=== PATIENT | female | born 1995 | race Hispanic/Latino ===

== ENCOUNTER 2017-10-01 00:02 | Emergency (ER) | payer SELFPAY ==
[2017-10-01 01:39] LABS: APPEARANCE,URINE Clear (CLEAR); BILIRUBIN,URINE Negative (NEGATIVE); COLOR,URINE Yellow (YELLOW); GLUCOSE, URINE (UA) Negative (NEGATIVE); KETONES,URINE Negative (NEGATIVE); LEUKOCYTE ESTERASE ,URINE Negative (NEGATIVE); NITRATE,URINE Negative (NEGATIVE); OCCULT BLOOD,URINE Negative (NEGATIVE); PROTEIN,URINE Negative (NEGATIVE); UROBILINOGEN,URINE 0.2 mg/dL (0.2-1.0)
[2017-10-01 01:40] LABS: HCG,QUAL RESULT NEGATIVE (NEGATIVE)
[2017-10-01] MEDS ORDERED: LIDOCAINE HCL 1% 20 ML VIAL ONE (02:18)
[2017-10-01] MEDS ORDERED: CEPHALEXIN 500 MG CAPSULE ONE (03:51)
== END 2017-10-01 03:57 | disposition home or self-care (01) ==
LOC: EDH 00:02
DX: L73.8 Other specified follicular disorders (principal)
CPT/HCPCS: 36415; 81003; 81025